=== PATIENT | male | born 1945 | race Caucasian/White ===

== ENCOUNTER 2017-08-19 11:15 | Emergency (ER) | payer MEDICARE ==
[~2017-08-19] VITALS: Ht 182.9 cm; Wt 88.0 kg
[~2017-08-19 11:15] MED LIST: ALLO300T2 PO; SIMV10 PO; TAB-TAB PO; VITA500C PO; WARF1TAB PO; WARF7.5T4 PO
[2017-08-19 11:22] VITALS: BP 141/86; PULSE 101; RESP 16; TEMP 97.8; O2SAT 96
[2017-08-19] MEDS ORDERED: ASCO500T PO (11:41)
[2017-08-19] MEDS ORDERED: ALLO100T PO (11:41)
[2017-08-19] MEDS ORDERED: MULTTAB67 PO (11:41)
[2017-08-19] MEDS ORDERED: LACT10SO PO (11:41)
[2017-08-19] MEDS ORDERED: WARF4TAB52 PO (11:41)
[2017-08-19] MEDS ORDERED: SIMV10TA PO (11:41)
[2017-08-19] MEDS ORDERED: PRED20 PO ×2 (12:17→12:18)
--- NOTE | 2017-08-19 12:18 | PD ---
HPI Chief Complaint: Musculoskeletal Complaint Time Seen by Provider: 11:58 Travel History International Travel<30 days: No Contact w/Intl Traveler<30days: No Traveled to known affect area: No History of Present Illness HPI 71 year old male with history of gout here with right elbow pain times one day. Denies injury or trauma. Denies fever or chills. Reports the area has become increasingly more tender, swollen and mildly red and warm. This is similar to a previous gout flare in the opposite elbow. He is currently on allopurinol. Symptom severity is moderate. Unrelieved by [id number] Tylenol. PFSH Past Medical History Atrial Fibrillation: Yes Cardiovascular Problems: Yes High Cholesterol: Yes Cirrhosis: Yes Coronary Artery Disease: Yes Diabetes: No Gastrointestinal Disorders: Yes (CIRRHOSIS) Gout: Yes Hepatitis: No Hypertension: No Respiratory: No Integumentary: Yes Tetanus Vaccination: > 5 Years Influenza Vaccination: Yes Past Surgical History Abdominal Surgery: Yes (HERNIA REPAIRS) Cardiac Surgery: Yes (OPEN HEART FOR CACIUM REMOVAL) Tonsillectomy: Yes Other Surgery: Yes Social History Alcohol Use: No (FORMER) Tobacco Use: No Substance Use: No Allergies-Medications (Allergen,Severity, Reaction): Coded Allergies: penicillin G (Unverified Allergy, Severe, 08/19/17) Reported Meds & Prescriptions Reported Meds & Active Scripts Active Ultram (Tramadol HCl) 50 Mg Tab 50 Mg PO Q6H PRN Prednisone 20 Mg Tab 40 Mg PO DAILY Take 40 mg (2 tablets) daily for 5 days Reported Warfarin 1 Mg Tab 1 Mg PO DIRECTED Simvastatin 10 Mg Tab 10 Mg PO DAILY Multiple Vitamin 1 Tab 1 Tab PO DAILY Lactulose Liq (Lactulose) 10 Gm/15 Ml Soln 30 Ml PO BID Ascorbic Acid 500 Mg Tab 1,000 Mg PO Allopurinol 100 Mg Tab 150 Mg PO DAILY Review of Systems Except as stated in HPI: all other systems reviewed are Neg General / Constitutional: No: Fever Physical Exam Narrative GENERAL: Alert male. Well-appearing. SKIN: Warm and dry. No rash. HEAD: Normocephalic. EYES: No injection or drainage. NECK: Supple, trachea midline. CARDIOVASCULAR: Regular rate and rhythm RESPIRATORY: Breath sounds equal bilaterally. No accessory muscle use. GASTROINTESTINAL: Abdomen soft, non-tender, nondistended. MUSCULOSKELETAL: No cyanosis, or edema. Right upper extremity: Right elbow tender, mildly swollen, mild erythema and warmth. No overlying wounds or cellulitis. Patient is able to flex and extend the joint. 2+ distal pulses. Brisk cap refill. Data Data Last Documented VS Vital Signs Date Time Temp Pulse Resp B/P (MAP) Pulse Ox O2 Delivery O2 Flow Rate FiO2 08/19/17 11:22 97.8 101 16 141/86 (104) 96 MDM Medical Decision Making Medical Screen Exam Complete: Yes Emergency Medical Condition: Yes Differential Diagnosis Gout, arthritis, tendinitis, septic joint Narrative Course 71-year-old male with a history of gout presents with nontraumatic right elbow pain. The joint is mildly swollen, erythematous, warm. I do not suspect septic arthritis. The patient is afebrile. Toxic appearing. This appears to be a gouty flare. Patient will be prescribed steroids and pain medication. Instructed to follow-up primary doctor. Return precautions discussed. Diagnosis Primary Impression: Gout Qualified Codes: M10.9 - Gout, unspecified Referrals: Primary Care Physician Additional Instructions: Take the prednisone with food. Tylenol as needed for pain. Ultram as needed for severe pain. Follow-up with her primary doctor. Return if he developed new or worsening symptoms. Scripts Tramadol (Ultram) 50 Mg Tab 50 MG PO Q6H Y for PAIN, #12 TAB 0 Refills Prov: Elizabet Kapadia MD 08/19/17 Prednisone (Prednisone) 20 Mg Tab 40 MG PO DAILY, #8 TAB 0 Refills Take 40 mg (2 tablets) daily for 5 days Prov: Kerrie Berger 08/19/17 Disposition: 01 DISCHARGE HOME Condition: Stable Kerrie Berger Aug 19, 2017 12:18
[2017-08-19] MEDS ORDERED: TRAM50 PO (12:19)
== END 2017-08-19 12:27 | disposition home or self-care (01) ==
LOC: PHEFT 11:15
DX: M10.9 Gout, unspecified (principal); I48.91 Unspecified atrial fibrillation; E78.00 Pure hypercholesterolemia, unspecified; I25.10 Atherosclerotic heart disease of native coronary artery without angina pectoris; K74.60 Unspecified cirrhosis of liver
CPT/HCPCS: 99284